=== PATIENT | female | born 1940 | race Caucasian/White ===

== ENCOUNTER → 2016-11-19 | Outpatient (CLI) | payer OTHER ==
[~2016-11-19] VITALS: Ht 160 cm; Wt 64.0 kg
[~2016-11-19] MED LIST: AMBIEN 5 MG TABL5 M1 PO; LEVOTHYROXINE0.2 M1 PO; PREDNISONE 5 MG5 M1 PO; PROZAC20 MG PO; RECLAST 55 MG/1002 IV; SYMBICORT160 MCG/4. INH
--- NOTE | ~2016-11-19 | CATHLAB ---
[facility] [address] [facility] [place] [address] INVASIVE PROCEDURE REPORT Name: OSWALD CHRISTIANSEN Room #: REG BERTA Hernandez#: [id number] Admission: 11/19/16 Attend Phys: Jeff Long Discharge: Date of : 36 Date of Service: 11/27/16 1356 Report #: [id number] THIS REPORT FOR: //name// APPROVED REPORT Patient Details Patient Status: Out-Patient Room #: The patient is a 76 year-old female Event Personnel Jeff Armenta Internet Consultant, Carina Duncan RN RN, Deonna Bonilla [place], Ariel RN Monitor Procedures Performed Art Access - R femoral artery* , Left Heart Cath w/or w/o Coronaries [id number], SUPERVISION OF CONSCIOUS SEDATION, [facility] Hemostasis with Manual pressure Indication Positive stress test, Chest pain Risk Factors Dysplipidemia , Family History, POST MENOPAUSAL FEMALE Admission/Lab Medications/Medications given during procedure Versed IV 2 mg Procedure Narrative The patient was brought electively to the Cardiac Catheterization Laboratory and was prepped and draped in a sterile manner. The Right Groin^ was infiltrated with 1% Lidocaine subcutaneous anesthesia. A PINNACLE 4FR Sheath #[id number] sheath was inserted into the RFA^. Coronary angiography was performed using coronary diagnostic catheters. The right coronary system was accessed and visualized with a JR 4 catheter. The left coronary system was accessed and visualized with a JL 4 catheter. The left ventricle was accessed and visualized with a 4 Fr JR 4 catheter. Hemostasis was obtained with manual pressure following sheath removal without any complications. The patient tolerated the procedure well and there were no complications associated with the procedure. There was no hematoma. Intraoperative Conscious Sedation Sedation start time: 941 Case end Time: 999 [facility] [address] [place] [address] INVASIVE PROCEDURE REPORT Name: SEDA CHRISTIANSENNDA [id number] Admission: 11/19/16 Attend Phys: Jeff Long Discharge: Date of : 36 Date of Service: 11/27/16 1356 Report #: [id number] Versed 2 mg Fluoro Time: 3.10 minutes Dose: DAP 2496.10 cGycm2 358 mGy Contrast Type and Amount: Omnipaque 56 ml Coronary Angiography The patient's coronary anatomy is co- dominant. Diagnostic Cath Left Main NORMAL ORIGIN AND CALIBER BIFURCATES INTO LAD AND LCX FREE OF HIGH GRADE LESIONS LAD MODERATE CALIBER TYPE 3 VESSEL WITH LUMINAL IRREGULARITES WHICH ARE NONFLOW LIMITING. THE DISTAL PORTION HAS A BEND AND A HINGE POINT NOTED DURING SYSTOLE BUT NOT DIASTOLE Diagonal 1 LUMINAL IRREGULARITIES NOTED Circumflex SMALL VESSEL GIVING RISE TO 2 MARGINAL BRANCHES ALL FREE OF HIGH GRADE DISEASE BUT WITH LUMINAL IRREGULARITIES NOTED Right Coronary SMALL TO MODERATE CALIBER VESSEL WITH A PROXIMAL ECCENTRIC 30% LESION PRESENT. THIS IS NON FLOW LIMITING. NO SIGNIFICANT OBSTRUCTIVE LESIONS NOTED Hemodynamics The aortic pressure is 172/86 mmHg with a mean of 119 mmHg. The left ventricular pressure is 164/5 mmHg with a mean of mmHg. The left ventricular end diastolic pressure is 24 mmHg. Pullback from the left ventricle to the aorta revealed no gradient across the aortic valve. Conclusion 1. CORONARY ARTERY DISEASE MILD NONOBSTRUCTIVE 2. ABNORMAL HEMODYNAMICS WITH MILDLY ELEVATED LVEDP 3. RECOMMEND OPTIMIZATION OF MEDICAL REGIME AND RISK FACTOR MODIFICATIONS. Recommendations Cardiac Risk Reduction Program Aggressive Medical Therapy Medications Administered Aspirin (any) Statin (any) <ELECTRONICALLY SIGNED> By: Jeff Armenta MD 11/27/16 1356 1356 1356 Jeff Armenta MD /INF
[2016-11-19 07:21] VITALS: BP 143/88
== END | disposition home or self-care (01) ==
LOC: CATH 06:56
DX: I25.10 Atherosclerotic heart disease of native coronary artery without angina pectoris (principal); E78.5 Hyperlipidemia, unspecified; J45.909 Unspecified asthma, uncomplicated; Z87.891 Personal history of nicotine dependence; K21.9 Gastro-esophageal reflux disease without esophagitis